=== PATIENT | male | born 1995 | race Caucasian/White ===

== ENCOUNTER 2021-09-13 10:00 | Outpatient (REF) | payer BC, MEDICAID, SELFPAY ==
[2021-09-13 18:19] LABS: Fentanyl, urine Not Detected (Not Detect)
== END 2021-09-13 10:01 | disposition home or self-care (01) ==
LOC: HO.LNP 10:00
PROVIDERS: Visit Provider Internal Medicine
DX: F11.90 Opioid use, unspecified, uncomplicated (principal); Z51.81 Encounter for therapeutic drug level monitoring
CPT/HCPCS: 80305; 80307

== ENCOUNTER 2021-09-27 15:29 | Inpatient (IN) | payer OTHER, MEDICAID, SELFPAY ==
--- NOTE | 2021-09-27 | ECG_ITS ---
Test Reason : AMS Blood Pressure : / mmHG Vent. Rate : 108 BPM Atrial Rate : 108 BPM P-R Int : 134 ms QRS Dur : 098 ms QT Int : 352 ms P-R-T Axes : 026 -23 013 degrees QTc Int : 471 ms Sinus tachycardia Minimal voltage criteria for LVH, may be normal variant ( R in aVL ) Borderline ECG No previous ECGs available Referred By: Phill Valdez Electronically Signed By:MARLON GIANG
--- NOTE | ~2021-09-27 | XR_ITS ---
EXAMINATION: XR CHEST CLINICAL INFORMATION: Unresponsive COMPARISON: None TECHNIQUE: Frontal view of the chest was obtained. FINDINGS: No significant abnormality is noted involving the heart, lungs, mediastinum, bony thorax or soft tissues. XR/XR chest 1V IMPRESSION: Normal portable chest x-ray.
--- NOTE | ~2021-09-27 | CT_ITS ---
EXAMINATION: CT HEAD WITHOUT CONTRAST CLINICAL INFORMATION: Mental status change. Rule out bleed. COMPARISON: None TECHNIQUE: Imaging was performed from the skull base to vertex without intravenous administration of contrast. This CT examination was performed using dose optimization techniques as appropriate, variously including the following: *Automated exposure control *Adjustment of mA and/or kV according to patient size (this includes techniques or standardized protocols for targeted exams where dose is matched to indication/reason for exam; i.e. extremities or head) *Use of iterative reconstruction technique Total exam dose length product: 805 mGy-cm FINDINGS: Exam quality degraded slightly by mild motion artifact. No intra or extra-axial fluid collection, hemorrhage, or mass. No ventriculomegaly. No midline shift or herniation. Basal cisterns are patent. Donahue-white matter differentiation is maintained. No territorial encephalomalacia. No significant volume loss. There is no abnormal attenuation within the brain parenchyma. No calvarial fracture or soft tissue abnormality. The mastoid air cells and visualized portions of the paranasal sinuses are well aerated. CT/CT head/brain wo con IMPRESSION: 1. No acute intracranial pathology.
[2021-09-27 15:39] VITALS: BP 104/45; BP 120/70; PULSE 102; PULSE 213; RESP 24; TEMP 36.9; O2SAT 98; O2SAT 99; BMI 32.5
--- NOTE | 2021-09-27 15:48 | ED_ITS ---
HPI - Altered Mental Status General Chief Complaint: Altered Mental Status Stated Complaint: UNRESPONSIVE Time Seen by Provider: 09/27/21 15:37 Source: EMS Mode of arrival: EMS Limitations: altered mental status History of Present Illness HPI narrative: 26-year-old male who called EMS for chest pain. Patient was apparently found on a bench unresponsive. He had a large bottle of Marycruz crystal near him which was empty. He also had Suboxone with him as well. EMS reported that the patient was responsive to painful stimuli only and that he had a rapid heart rate as high as 220. The patient's point of care glucose was 83. He was given intranasal Narcan with no rib change in his altered mental status. On presentation to the emergency department, the patient is minimally responsive to painful stimuli. His pupils are 6 mm and responsive to light. His point of care glucose in the emergency department was 85. In reviewing the patient's records he was just seen on 09/13/2021 (3 weeks prior to evaluation) by Dr. Ryan for evaluation of opiate use disorder and starting Suboxone. According to the note, the patient was started on Suboxone while he was in residential for the last 3 months and was released 1 week prior to this office evaluation. The patient reported drinking alcohol 1 bottle of alcohol daily and experiencing alcohol withdrawal in the past. He also reported using 1 package of intranasal heroin daily. The patient had a urine drug test which was negative at that time of evaluation. The patient's sister, Sheila, who lives in [place] called and said that the patient has been on house arrest and has been very sad and depressed. The patient's girlfriend 5 packets of Suboxone that were open and she believes that he may have taken all all 5 packets at once. The patient is currently living with the mother of his children, Erin who can be reached at . She states that he has been depressed and she is concerned that he may have tried to hurt himself today by overdosing on Suboxone. Related Data Previous Rx's Medication Instructions Recorded buprenorphine 8 mg-naloxone 2 mg 2 film sublingual DAILY 7 days #14 09/13/21 sublingual film (Suboxone) ea Allergies Allergy/AdvReac Type Severity Reaction Status Date / Time No Known Allergies Allergy Verified 09/27/21 15:37 Review of Systems Review of Systems: Yes Unobtainable due to mental status [facility] Past Medical History [facility] Narrative: Past medical history: Alcohol use disorder, opiate use disorder. Social history: Unobtainable however the patient was released from care home several weeks prior and has been on house arrest. Physical Exam ED Vital Signs: Vital Signs - 24 hr 09/27/21 15:39 Temperature 98.5 F Pulse Rate 102 H Respiratory Rate 24 H Blood Pressure 104/45 L Pulse Oximetry 99 Oxygen Delivery Method Nasal Cannula BMI result Body Mass Index 32.5 Const Other: The patient is somnolent, minimally responsive to painful stimuli, he will occasionally set up look around then lie back down on the stretcher, he does make incomprehensible noises as well HENMT Head: Yes normal to inspection, Yes normocephalic and Yes atraumatic Ears: external ears normal General nose exam: Normal external nose present Face and sinus: Yes normal facial exam Mouth: Normal oral and palatal mucosa present Throat: Yes posterior oropharynx normal Eyes Other: Patient's pupils are 7 mm and responsive. Neck Neck: Yes normal visual inspection, Yes no lymphadenopathy, Yes trachea midline and Yes supple Chest Chest palpation & inspection: normal inspection of the chest and normal palpation of entire chest wall Resp Effort & Inspection: normal respiratory effort and able to speak in complete sentences Auscultation: clear to auscultation bilaterally Cardio Rate: tachycardic Rhythm: regular rhythm Heart sounds: S1 normal heart sound present, S2 normal heart sound present and no murmurs GI Inspection: Yes normal to inspection Palpation (GI): Soft to palpation, nontender and no guarding Auscultation: normal bowel sounds General: Yes no CVA tenderness Back/Spine/Pelvis Back: no CVA tenderness Skin General skin exam: no rashes or lesions noted Neuro Other: Patient is somnolent but responsive to painful stimuli, he does sit up spontaneously , looks around then lies back down to become somnolent again. He does make some incomprehensible noises. Extrem Other: No evidence of trauma, the patient does have an ankle bracelet on his left ankle Psych Other: Somnolent but arousable to painful stimuli Course Course Course Narrative: 26-year-old male with a history of heroin use disorder and alcohol use disorder who called 911 himself complained of chest pain and was found unresponsive on a bench. The patient had Suboxone on him and also there was a large bottle of Marycruz crystal which was empty. Patient's point of care glucose by EMS and by the ED was in the 80 range. Vital signs did reveal low BP of 104/45, pulse of 102 respiratory of 24. Patient was given Narcan 2 mg IV with no effect. I did order laboratory evaluation, EKG , CT scan of the head and chest x-ray. The patient will be kept on a cardiac, pulse ox and end-tidal CO2 monitor. Since there is a concerned the patient may have intentionally overdosed on his Suboxone in order to hurt himself, I will place the patient on a Section 12. 1651: Laboratory evaluation: Urine tox screen was positive for marijuana only. ETOH level was 164. Acetaminophen and salicylates were below detectable limits. CBC and CMP were unremarkable. Lactic acid was elevated at 3.2. Radiology evaluation: Chest x-ray was unremarkable. CT scan of the head is pending. At this time, I believe that the patient's altered mental status was most likely caused by severe depression and possibly alcohol intoxication and intentional overdose of his Suboxone. At the end of my shift, the CT scan is pending and (evaluation is pending therefore the patient's care was turned over to my colleague, Dr. Anderson. Discharge Plan Discharge Clinical Impression: Acute alteration in mental status Alcohol intoxication Qualifiers: Complication of substance-induced condition: uncomplicated Qualified Code(s): F10.920 - Alcohol use, unspecified with intoxication, uncomplicated Intentional overdose Qualifiers: Encounter type: initial encounter Qualified Code(s): T50.902A - Poisoning by unspecified drugs, medicaments and biological substances, intentional self-harm, initial encounter Patient Disposition: Still a Patient Prescriptions: No Action buprenorphine-naloxone [Suboxone] 8-2 mg film 2 film sublingual DAILY 7 Days Qty: 14 0RF Rx Instructions: place 1 strip/tab under (each) side of tongue
[2021-09-27] MEDS: 0.9 % Sodium Chloride 1,000 ML 999 ML IV ×2 (15:49→18:51)
[2021-09-27 15:53] LABS: MANUAL DIFF FLAG NO
[2021-09-27 15:54] LABS: Basophils Percent Auto 0.2 % (0-2); Hematocrit 40.4 % (42.0-52.0); Hemoglobin 13.5 g/dl (14.0-18.0); Imm Gran Abs Auto 0.02 X10*3/uL (0.00-0.03); Imm Gran Pct Auto 0.2 % (0.0-0.4); Lymphocytes Absolute Auto 1.9 X10*3/uL (1.2-4.9); Lymphocytes Percent Auto 18.5 % (20-40); Mean Corpuscular HGB Conc 33.4 g/dl (31.0-36.0); Mean Corpuscular Hemoglobin 28.9 pg (27.0-33.0); Mean Corpuscular Volume 86.5 fL (80.0-98.0); Mean Platelet Volume 12.4 fL (9.4-12.4); Monocytes Absolute Auto 0.7 X10*3/uL (0.1-1.2); Monocytes Percent Auto 6.6 % (2-11); Neutrophils Absolute Auto 7.6 x10*3/uL (2.0-8.3); Neutrophils Percent Auto 74.5 % (45-73); Platelet Count 197 X10*3/uL (160-400); Red Blood Count 4.67 X10*6/uL (4.60-5.80); Red Cell Distribution Width 11.9 % (11.0-16.0); White Blood Count 10.1 X10*3/uL (4.8-10.8)
[2021-09-27 16:01] LABS: INTERNATIONAL NORM RATIO 1.1 (0.9-1.1); Prothrombin Time 12.6 SEC (10.0-13.1)
[2021-09-27 16:03] LABS: Partial Thromboplastin Time 28.6 SEC (24.1-38.0)
--- NOTE | 2021-09-27 16:06 | PC.NURSE ---
Pt's sister, Sheila, spoke with Dr Valdez.
[2021-09-27 16:10] LABS: Acetaminophen LAB < 1 mcg/mL (<30); Lactic Acid 3.2 mmol/L (0.5-2.0); Lipase 12 U/L (8-78); Salicylate < 5.0 mg/dL (15-30)
[2021-09-27 16:11] LABS: Alanine Aminotransferase 11 U/L (0-40); Albumin Level 4.6 g/dL (3.5-5.0); Alkaline Phosphatase 127 U/L (39-117); Anion Gap 17 (12-20); Aspartate Amino Transferase 16 U/L (5-37); Bilirubin Total 1.3 mg/dL (0.0-1.0); Blood Urea Nitrogen 17 mg/dL (9-16); Calcium 9.5 mg/dL (8.4-10.2); Carbon Dioxide 21 mmol/L (22-29); Chloride 108 mmol/L (96-108); Creatinine Clr Calc Pharmacy 146.8; Estimated Glomerular Filt Rate > 60; Ethanol 164 mg/dL; Glucose Random 95 mg/dL (60-115); Potassium 3.6 mmol/L (3.3-5.1); Sodium 142 mmol/L (135-145); Total Protein 7.6 g/dL (6.5-8.0)
[2021-09-27 16:17] LABS: B Type Natriuretic Peptide 29 pg/mL (<100); Troponin-I High Sensitivity < 3.5 ng/L (<3.5-35.0)
[2021-09-27 16:20] LABS: COVID-19 Test Negative (Negative); IDNOW Serial# 9DB6401D
[2021-09-27 17:47] VITALS: BP 113/70; PULSE 80; RESP 12; O2SAT 99
[2021-09-27 17:49] LABS: Reflex Lactate? Lactic Acid Added
[2021-09-27 18:13] LABS: Glucose, Whole Blood 83 mg/dL (60-115)
[2021-09-27 18:20] LABS: Lactic Acid 2.8 mmol/L (0.5-2.0)
[2021-09-27 18:53] VITALS: PULSE 85; RESP 13; TEMP 36.9; O2SAT 99
[2021-09-27 18:56] LABS: Appearance Urine CLEAR; Color Urine DK YELLOW; Glucose Urine UA NEG (NEG); Leukocyte Esterase Urine NEG (NEG); Nitrite Urine NEG (NEG); Specific Gravity - Urine 1.025 (1.005-1.025); Urine Blood NEG (NEG); Urine Ketones 5 MG/DL (NEG); Urine Protein NEG (NEG-TRACE)
[2021-09-27 19:05] LABS: Amphetamine Screen Urine Not Detected (Not Detect); Barbiturates, Urine Not Detected (Not Detect); Benzodiazepines Screen Urine Not Detected (Not Detect); Cannabinoid Screen Urine POSITIVE (Not Detect); Cocaine Screen Urine Not Detected (Not Detect); Fentanyl, urine Not Detected (Not Detect); Opiate Screen Urine Not Detected (Not Detect); Phencyclidine Screen Urine Not Detected (Not Detect)
--- NOTE | 2021-09-27 19:40 | PC.NURSE ---
This RN spoke with Dr Anderson to clarify if pt is medically cleared. Pt continues to receive IV fluids that were ordered. Per Dr Anderson, continuing repeat lactics not necessary. primary RN Angela made aware. [facility] Smart sheet to be submitted at this time.
--- NOTE | 2021-09-27 19:45 | PC.NURSE ---
Online [facility] referral completed by this RN.
[2021-09-27 19:53] LABS: Reflex Lactate? Lactic Acid Added
--- NOTE | 2021-09-27 19:58 | PC.NURSE ---
Report given to JAGRUTI Thompson and care transferred at this time
--- NOTE | 2021-09-27 20:00 | PC.NURSE ---
Patient Just got transferred from main ED, independent ambulation, N referral was completed/confirmed by Vanessa/pending ETA at this time, per report patient is medically cleared, will continue to monitor.
[2021-09-28 00:22] VITALS: BP 118/76; PULSE 81; RESP 16; TEMP 36.4; O2SAT 99
--- NOTE | 2021-09-28 06:36 | PC.NURSE ---
Patient slept through the night, no distress observed/reported, asymptomatic of withdrawal at this time, [facility] referral completed/confirmed/pending ETA, med rec completed, currently on Suboxone only, mother visited yesterday evening went well, behavior non concerning, will continue to monitor.
--- NOTE | 2021-09-28 07:24 | PC.NURSE ---
patient appears to remain at rest this am, presented patient with breakfast patient made no verbal comments to t/w upon presentation, patient appears in no distress, respirations even and unlabored. continue to monitor for safety.
--- NOTE | 2021-09-28 09:21 | MHC.RECOVSUP ---
Recovery Support note: Patient is a 26 year old Portuguese speaking male who presented to [facility] after being found unresponsive. This ghost writer met with patient to discuss Suboxone use and his interest in continuing treatment. Patient does not recall what happened prior to arrival. Explained that there were 5 empty Suboxone wrappers found near him. Patient unable to say whether he took more than prescribed or if the films were taken as prescribed over a period of days and that he was saving the wrappers to bring back to the clinic as instructed. Patient denies using any opiates or pills. Patient tested negative for opiates and fentanyl. Patient is interested in continuing Suboxone. Discussed with RN and ED provider. This ghost writer recommends patient resume his regular dose of 2, 8mg films once a day. Patient currently being evaluated by Meaghan and a disposition is still pending.
[2021-09-28 10:24] VITALS: BP 140/81; PULSE 71; TEMP 36.7; O2SAT 100
[2021-09-28] MEDS: Buprenorphine/Naloxone 8/2 mg FILM 1 FILM SUBLINGUAL (10:31)
--- NOTE | 2021-09-28 13:00 | PC.NURSE ---
clients sister called (sounded like conference call w mother) and inquired about patient status, informed them the plan would be to have patient head to inpatient unit today
--- NOTE | 2021-09-28 17:24 | PC.NURSE ---
t/w asked client permission to let in visit from mother or sister, client declined. asked first about mother he responds without looking at poem writer. repeatedly asked and clients delayed in responses. patient had made phone calls to them during the day. five minutes was spent trying to encourage client to allow visit, patient declines. family calls back and asks to speak to someone. t/w asked care produce team lead to go speak to family briefly to try and explain.
[2021-09-29 00:37] VITALS: BP 141/79; PULSE 68; RESP 17; TEMP 36.6; O2SAT 99
[2021-09-29] MEDS: LORazepam 1 MG TABLET PO (00:56)
[2021-09-29] MEDS: OLANZapine 10 MG TABLET PO (00:56)
--- NOTE | 2021-09-29 06:53 | PC.NURSE ---
Patient woke up at 0015, startled/screaming at TV, spoke with patient he reported nightmares, provider notified/ordered Ativan 1 mg po & Olanzapine 10 mg po/administered as ordered/+ effect, slept through the night, disposition per [facility] is section 12 inpatient bed search, VSS, behavior unpredictable but non concerning, will continue to monitor.
--- NOTE | 2021-09-29 07:22 | PC.NURSE ---
patient appears to remain asleep at present respirations are even and unlabored patient appears in no distress
--- NOTE | 2021-09-29 11:01 | MHC.CARE ---
CARE Team received phone call from Pts family- CARE Team explained limitations regarding Pt declining communication with his family at this time.
[2021-09-29 18:00] VITALS: BP 127/82; PULSE 82; TEMP 36.2; O2SAT 98
--- NOTE | 2021-09-30 00:45 | PC.ADMIT ---
PATIENT IS A SINGLE INDIAN SPEAKING MALE ADMITTED A SECTION 12B FROM THE [facility] AFTER HE WAS MEDICALLY CLEARED AND EVALUATED BY [facility] AND DEEMED IN NEED OF IPLOC. HE ARRIVED ON M5 AT 194409/29/21 AND PLACED ON 15 MINUTE SAFETY CHECKS. THE PATIENT HAD BEEN BROUGHT TO THE [facility] AFTER HE WAS FOUND UNRESPONSIVE BY EMS AND THERE WAS A QUESTION OF SUBOXONE OVERDOSE. HE WAS POSITIVE FOR THC WELL. PATIENT WAS REPORTED TO HAVE MADE SUICIDAL STATEMENTS. HE IS NOT KNOWN TO [facility] OR [facility]. HE WAS APPARENTLY, ACCORDING TO HIS SISTER, FRUSTRATED WITH BEING ON HOUSE ARREST AFTER BEING IN ALF FOR 3 MONTHS AND LEFT THE HOUSE TO GO DRINK. PATIENT WAS UNABLE TO RECALL, TO THIS PHARMACEUTICAL SCIENTIST, ANY REASON FOR BEING IN THE HOSPITAL. WHEN THIS PHARMACEUTICAL SCIENTIST EXPLAINED HE HAD BEEN UNRESPONSIVE HE STILL WAS UNABLE TO PROCESS THE SEVERITY OF HIS ACTIONS. HE SAID HE DID NOT REMEMBER MAKING ANY SUICIDAL STATEMENTS BUT DOES REMEMBER DRINKING. HE WAS GUARDED DURING THE ADMISSION PROCESS AND DID NOT MAKE EYE CONTACT WITH THIS PHARMACEUTICAL SCIENTIST. HE SAID HE DID NOT HAVE ACTIVE SUICIDAL THOUGHTS BUT ALLUDED TO VOICES THAT TELL HIM TO HURT/KILL HIMSELF. BOTTLE CARRIER PROVIDER AWARE OF ADMISSION; ORDERS WERE OBTAINED. PATIENT SAT IN THE KITCHEN AREA UNTIL HE BECAME SLEEPY. HE WAS OFFERED A TRAZADONE BUT DECLINED.
[2021-09-30 09:17] VITALS: BP 107/69; PULSE 66; RESP 18; TEMP 36.6; O2SAT 98
[2021-09-30] MEDS: OLANZapine 10 MG TABLET PO ×2 (10:59→20:31)
[2021-09-30] MEDS: Buprenorphine/Naloxone 8/2 mg FILM 2 FILM SUBLINGUAL (11:01)
--- NOTE | 2021-09-30 15:06 | HO.PSYADMNOT ---
HPI Date of Service: 09/30/21 Chief Complaint: Psychosis Sources of Information: patient interviewed, chart reviewed and crisis/core team assessment reviewed HPI Subjective Notes: [place] Warning and Section 12B Narrative: Interview limited as patient presents as internally preoccupied with thought blocking. He endorses hearing things. From crisis notes comments are negative in nature and telling him to hurt himself. Reports today that this is not him and he is not sure what is happening. Does appear scared. Does endorse hearing voices and states they say inappropriate things and unable to elaborate. Denies wanting to hurt himself. No evidence of HI. Does endorse feeling depressed. Sleep has been problematic. No overt mansi. Is allowing care to be delivered. States his kid's mother kicked him out a couple of days ago. Said he was drinking liquor which he denies. Blood alcohol level was in the 160s. There is no evidence of withdrawal. Reported when she kicked him out, he called his mom as he needed to change and address for his ankle bracelet. He is unable to state what happened after that. Legal situation is unclear and unable to elaborate on same. Did reference that he was trying to work because he would be going away for a long time. Asked regarding Suboxone dosing and unable to elaborate on same or why he was also declining Suboxone- Reviewed [place] Pat. There is only 1 Suboxone prescription for 7 days on 09/13/2021, For 8 mg tabs 2 per day. Given same will DC suboxone order, until patient able to engage more ref same. Past Psychiatric History: very unclear. Stated he did not have any psychiatric history. And stated he had a suicide attempt couple of years ago but unable to give details. Medical Evaluation Reviewed: [facility] Social History: Unclear living situation. Reports being kicked out by his kids mom a couple days ago. Ankle bracelet in place and unclear details regarding same. Reports having a 2-year-old and 1-year-old. Substance History: Unclear. Diagnostics Vital Signs (24Hr): Vital Signs - 24 hr 09/29/21 18:00 09/30/21 09:17 Temperature 97.2 F 97.8 F Pulse Rate 82 66 Respiratory Rate 18 Blood Pressure 127/82 107/69 Pulse Oximetry 98 98 Oxygen Delivery Method Room Air Room Air BMI result Body Mass Index 32.5 Labs Results: 09/27/21 15:44 09/27/21 15:43 Imaging Radiology Impressions: ITS Impressions Chest X-Ray 09/27/21 16:05 IMPRESSION: Normal portable chest x-ray. Head CT 09/27/21 17:11 IMPRESSION: 1. No acute intracranial pathology. Meds/Allergies Allergies Allergies Allergy/AdvReac Type Severity Reaction Status Date / Time No Known Allergies Allergy Verified 09/27/21 15:37 Mental Status Exam Mental Status Exam Narrative: In room. Anxious. Internally preoccupied. Endorses hallucinations say negative things. Denies SI. Denies HI. Feels safe with staff. Insight and judgment limited Assessment & Plan Assessment & Plan (1) Psychosis: Status: Acute Code(s): F29 - Unspecified psychosis not due to a substance or known physiological condition Plan presents with auditory hallucinations and thought disorder for unclear time frame. Background history unclear. Medical workup unremarkable. Zyprexa does appear to have being somewhat helpful when given earlier today and will therefore schedule same. Regarding Suboxone only 1 Suboxone prescription for 7 days on 09/13/2021, For 8 mg tabs 2 per day. Has been declining suboxone. Given same will DC suboxone order, until patient able to engage more ref same. Patient educated on: medication risk/benefits Informed Consent: further education needed Reason for continued inpatient stay Substantial Risk for: inability to function
[2021-09-30 16:37] VITALS: BP 113/56; PULSE 75; RESP 16; TEMP 36.8; O2SAT 98
[2021-09-30 19:34] VITALS: BP 143/84; PULSE 94; RESP 16; TEMP 36.3; O2SAT 97
[2021-10-01 06:00] VITALS: BP 112/59; PULSE 87; RESP 16; TEMP 36.6; O2SAT 98
[2021-10-01] MEDS: OLANZapine 10 MG TABLET PO ×2 (10:04→11:49)
[2021-10-01] MEDS: Buprenorphine/Naloxone 8/2 mg FILM 2 FILM SUBLINGUAL (10:04)
--- NOTE | 2021-10-01 13:26 | HO.PSYCHPN ---
Subjective Subjective Date of Service: 10/01/21 Reason For Visit: Psychosis Interim History: Patient sitting on bed, with significant thought blocking and speech latency. He says he is not doing so good and reports that this is because he is hearing voices. He says frequently I just do not understand all of this.. . I just do not get it... And seems to be referring to why he is feeling confused and having auditory hallucinations, however he is not capable of elaborating. Patient is somewhat of a limited historian; he says he thinks he has been on medications before but does not remember what they were or when. He shared some of his history about his girlfriend not wanting him to live there and his mom thinking he is the person he used to be however it is hard to get him to clarify these statements. Patient has some ambivalence about whether not to remain on the unit but seems to indicate he is open to the idea. He also said it would be okay to call his mother for collateral. Patient agrees to medication change at flex o writer operator's discretion if it will help relieve him from auditory hallucinations. Patient seemed to understand that his confusion and auditory hallucinations are due to a psychiatric illness/schizophrenia however other than seemingly knotting in acceptance, he was not able to discuss this in any detail. Mental Status Exam Mental Status Exam Narrative: Pt is alert and oriented; behavior is disorganized; patient is in emotional distress; dressed in hospital attire with unkempt hair; mood is described as not so good and affect congruent, blunted and sometimes anxious; eye contact not inappropriate but sometimes blank stare; Speech is with significant speech latency, slowed and with softer volume; some psychomotor retardation present; thought process can be goal oriented but also disorganized; Thought content is on why he is having auditory hallucinations, wondering if it is something he did wrong, and also confused, not understanding his situation; denies delusional content or paranoid ideations and none solicited; denies any SI/HI. AH present and patient with significant thought blocking and is internally preoccupied. Patients insight and judgment are impaired. Diagnostics Vital Signs (24Hr): Vital Signs - 24 hr 09/30/21 16:37 09/30/21 19:34 10/01/21 06:00 Temperature 98.2 F 97.3 F 97.9 F Pulse Rate 75 94 87 Respiratory Rate 16 16 16 Blood Pressure 113/56 L 143/84 H 112/59 L Pulse Oximetry 98 97 98 Oxygen Delivery Method Room Air Room Air BMI result Body Mass Index 32.5 Labs Results: 09/27/21 15:44 09/27/21 15:43 Imaging Radiology Impressions: ITS Impressions Chest X-Ray 09/27/21 16:05 IMPRESSION: Normal portable chest x-ray. Head CT 09/27/21 17:11 IMPRESSION: 1. No acute intracranial pathology. Medications Medications Current Medications Acetaminophen (Acetaminophen 325 Mg Tablet) 650 mg PO Q6H PRN PRN Reason: Headache/Pain Mild Scale (1-3) Al Hydroxide/Mg Hydroxide (Magnesium Hydrox/Alum Hydrox 30 Ml Oral.Susp) 30 ml PO Q6H PRN PRN Reason: Heartburn/Nausea Buprenorphine/Naloxone (Buprenorphine/Naloxone 8/2 Mg Film) 2 film SUBLINGUAL DAILY [facility] [place] Last Admin: 10/01/21 10:04 Dose: 2 film Hydroxyzine HCl (Hydroxyzine Hcl 25 Mg Tablet) 25 mg PO BEDTIME PRN PRN Reason: Anxiety Magnesium Hydroxide (Milk Of Magnesia 30 Ml Oral.Susp) 30 ml PO DAILY PRN PRN Reason: Constipation Olanzapine (Olanzapine 10 Mg Tablet) 10 mg PO Q8H PRN PRN Reason: agitation, anxiety Last Admin: 10/01/21 11:49 Dose: 10 mg Olanzapine (Olanzapine 10 Mg Tablet) 10 mg PO BID [facility] [place] Last Admin: 10/01/21 10:04 Dose: 10 mg Trazodone HCl (Trazodone Hcl 50 Mg Tablet) 50 mg PO BEDTIME PRN PRN Reason: Insomnia Allergies Allergies Allergy/AdvReac Type Severity Reaction Status Date / Time No Known Allergies Allergy Verified 09/27/21 15:37 Assessment & Plan Assessment & Plan (1) Psychosis: Status: Acute Code(s): F29 - Unspecified psychosis not due to a substance or known physiological condition Plan HPI: Interview limited as patient presents as internally preoccupied with thought blocking.? He endorses hearing things.? From crisis notes comments are negative in nature and telling him to hurt himself.? Reports today that this is not him and he is not sure what is happening.? Does appear scared. ? Does endorse hearing voices and states they say inappropriate things and unable to elaborate.? Denies wanting to hurt himself.? No evidence of HI.? Does endorse feeling depressed.? Sleep has been problematic.? No overt mansi.? Is allowing care to be delivered. States his kid's mother kicked him out a couple of days ago.? Said he was drinking liquor which he denies.? Blood alcohol level was in the 160s. ? There is no evidence of withdrawal.? Reported when she kicked him out, he called his mom as he needed to change and address for his ankle bracelet.? He is unable to state what happened after that.? Legal situation is unclear and unable to elaborate on same.? Did reference that he was trying to work because he would be going away for a long time. ? Asked regarding Suboxone dosing and unable to elaborate on same or why he was also declining Suboxone- ? Reviewed [facility].? There is only 1 Suboxone prescription for 7 days on 09/13/2021, ? For 8 mg tabs 2 per day. Given same will DC suboxone order, until patient able to engage more ref same. Past Psychiatric History:? very unclear.? Stated he did not have any psychiatric history.? And stated he had a suicide attempt couple of years ago but unable to give details. Hospital course: presents with auditory hallucinations and thought disorder for unclear time frame. Background history unclear. Medical workup unremarkable. After a few doses of Zyprexa reported as not that helpful and no reduction in AH so patient agreed to change to ziprasidone, chosen for its side effect profile lower risk of TD than typical antipsychotic. PLAN: 12b Q 15 minute checks DC Zyprexa and start ziprasidone Start Ziprasidone 20 mg b.i.d. with meals will repeat EKG (QTc on 09/27: 471 ms) Will attempt collateral and medication history Continue Suboxone 16/4 Mg Film DAILY I spent minutes with the patient and/or on the patient floor today, greater than?50% of which was spent counseling/coordinating care. Patient educated on: diagnosis and medication risk/benefits Informed Consent: further education needed Reason for contiued inpatient stay Substantial Risk for: inability to function and rapid decompensation
[2021-10-01 18:00] VITALS: BP 119/76; PULSE 76; TEMP 36.9; O2SAT 100
[2021-10-01] MEDS: traZODone HCL 50 MG TABLET PO (20:49)
[2021-10-01] MEDS: Ziprasidone 20 MG CAPSULE PO (20:50)
[2021-10-01] MEDS: hydrOXYzine HCL 25 MG TABLET PO (20:50)
[2021-10-02 09:20] LABS: Estimated Average Glucose 74 mg/dL; Hemoglobin A1c % 4.2 %
[2021-10-02] MEDS: Ziprasidone 20 MG CAPSULE PO ×3 (09:34→20:28)
[2021-10-02] MEDS: Buprenorphine/Naloxone 8/2 mg FILM 2 FILM SUBLINGUAL (09:34)
[2021-10-02 09:37] VITALS: BP 120/56; PULSE 82; RESP 18; TEMP 37.1
[2021-10-02 10:07] LABS: Cholesterol 120 mg/dL; HDL Cholesterol 27 mg/dL; LDL Cholesterol Calculated 82 mg/dl; Triglycerides 59 mg/dL
--- NOTE | 2021-10-02 10:13 | HO.PSYCHPN ---
Subjective Subjective Date of Service: 10/02/21 Reason For Visit: Psychosis Interim History: Patient remains with significant thought blocking and speech latency. Eventually however he is able to say that he feels a little better and that auditory hallucinations remain but are a little less intense. Patient signed CV. Patient significantly internally preoccupied stay to the point that would forget securities underwriter's question and needed to be reminded. Mental Status Exam Mental Status Exam Narrative: Pt is alert and oriented; behavior is disorganized, but more calm; dressed in jeans and hospital gown with unkempt hair; mood is described as ok but and affect blunted; eye contact minimal; Speech is with significant speech latency, slowed and with softer volume; some psychomotor retardation present; thought process can be goal oriented but also disorganized; Thought content is on why he is having auditory hallucinations and dealing with being internally preoccupied. No SI/HI; Patients insight and judgment are impaired. Diagnostics Vital Signs (24Hr): Vital Signs - 24 hr 10/01/21 18:00 10/02/21 09:37 Temperature 98.5 F 98.8 F Pulse Rate 76 82 Respiratory Rate 18 Blood Pressure 119/76 120/56 L Pulse Oximetry 100 Oxygen Delivery Method Room Air Room Air BMI result Body Mass Index 32.5 Labs Results: 09/27/21 15:44 09/27/21 15:43 Labs: Laboratory Results - last 48 hr 10/02/21 10/02/21 08:35 08:36 Estimat Average Glucose 74 Hemoglobin A1c % 4.2 Triglycerides 59 Cholesterol 120 LDL Cholesterol, Calc 82 HDL Cholesterol 27 Imaging Radiology Impressions: ITS Impressions Chest X-Ray 09/27/21 16:05 IMPRESSION: Normal portable chest x-ray. Head CT 09/27/21 17:11 IMPRESSION: 1. No acute intracranial pathology. Medications Medications Current Medications Acetaminophen (Acetaminophen 325 Mg Tablet) 650 mg PO Q6H PRN PRN Reason: Headache/Pain Mild Scale (1-3) Al Hydroxide/Mg Hydroxide (Magnesium Hydrox/Alum Hydrox 30 Ml Oral.Susp) 30 ml PO Q6H PRN PRN Reason: Heartburn/Nausea Buprenorphine/Naloxone (Buprenorphine/Naloxone 8/2 Mg Film) 2 film SUBLINGUAL DAILY [facility] Last Admin: 10/02/21 09:34 Dose: 2 film Hydroxyzine HCl (Hydroxyzine Hcl 25 Mg Tablet) 25 mg PO BEDTIME PRN PRN Reason: Anxiety Last Admin: 10/01/21 20:50 Dose: 25 mg Magnesium Hydroxide (Milk Of Magnesia 30 Ml Oral.Susp) 30 ml PO DAILY PRN PRN Reason: Constipation Trazodone HCl (Trazodone Hcl 50 Mg Tablet) 50 mg PO BEDTIME PRN PRN Reason: Insomnia Last Admin: 10/01/21 20:49 Dose: 50 mg Ziprasidone (Ziprasidone 20 Mg Capsule) 20 mg PO BIDWM [facility] Last Admin: 10/02/21 09:34 Dose: 20 mg Allergies Allergies Allergy/AdvReac Type Severity Reaction Status Date / Time No Known Allergies Allergy Verified 09/27/21 15:37 Assessment & Plan Assessment & Plan (1) Psychosis: Status: Acute Code(s): F29 - Unspecified psychosis not due to a substance or known physiological condition Plan HPI: Interview limited as patient presents as internally preoccupied with thought blocking.? He endorses hearing things.? From crisis notes comments are negative in nature and telling him to hurt himself.? Reports today that this is not him and he is not sure what is happening.? Does appear scared. ? Does endorse hearing voices and states they say inappropriate things and unable to elaborate.? Denies wanting to hurt himself.? No evidence of HI.? Does endorse feeling depressed.? Sleep has been problematic.? No overt mansi.? Is allowing care to be delivered. States his kid's mother kicked him out a couple of days ago.? Said he was drinking liquor which he denies.? Blood alcohol level was in the 160s. ? There is no evidence of withdrawal.? Reported when she kicked him out, he called his mom as he needed to change and address for his ankle bracelet.? He is unable to state what happened after that.? Legal situation is unclear and unable to elaborate on same.? Did reference that he was trying to work because he would be going away for a long time. ? Asked regarding Suboxone dosing and unable to elaborate on same or why he was also declining Suboxone- ? Reviewed [facility].? There is only 1 Suboxone prescription for 7 days on 09/13/2021, ? For 8 mg tabs 2 per day. Given same will DC suboxone order, until patient able to engage more ref same. Past Psychiatric History:? very unclear.? Stated he did not have any psychiatric history.? And stated he had a suicide attempt couple of years ago but unable to give details. Hospital course: presents with auditory hallucinations and thought disorder for unclear time frame. Background history unclear. Medical workup unremarkable. After a few doses of Zyprexa reported as not that helpful and no reduction in AH so patient agreed to change to ziprasidone, chosen for its side effect profile lower risk of TD than typical antipsychotic. 7/6 some minimal decrease in auditory hallucinations, given hope that Zyprexa might be helpful. Remains disorganized speech and behavior however, with significant speech latency, thought blocking. Patient continues to have auditory hallucinations and is confused. Patient reports nightmares as well; will hold off with prazosin at this time. Collateral provided and patient has history of being diagnosed with bipolar disorder however this was diagnosed when he was only 17. Patient has numerous drug related charges. PLAN: 12b Q 15 minute checks DC Zyprexa and start ziprasidone Will increase to Ziprasidone 40 mg b.i.d. with meals for continued AH and disorganized speech and behavior repeat EKG ordered on 10/02: Results pending (QTc on 09/27: 471 ms) Sister provided collateral to home health care social worker Continue Suboxone 16/4 Mg Film DAILY Lipids/hemoglobin A1c checked and within normal limits I spent minutes with the patient and/or on the patient floor today, greater than?50% of which was spent counseling/coordinating care. Patient educated on: diagnosis and medication risk/benefits Informed Consent: understands and further education needed Reason for contiued inpatient stay Substantial Risk for: inability to function and rapid decompensation
[2021-10-02 12:33] LABS: Reflex LDLD? No
[2021-10-02 18:00] VITALS: BP 126/75; PULSE 69; TEMP 36.5; O2SAT 96
[2021-10-02] MEDS: hydrOXYzine HCL 25 MG TABLET PO (20:27)
[2021-10-02] MEDS: traZODone HCL 50 MG TABLET PO (21:42)
[2021-10-03 07:00] VITALS: BMI 33.3
--- NOTE | 2021-10-03 07:00 | ECG_ITS ---
Test Reason : CHECK QTC Blood Pressure : / mmHG Vent. Rate : 075 BPM Atrial Rate : 075 BPM P-R Int : 122 ms QRS Dur : 096 ms QT Int : 390 ms P-R-T Axes : 036 -18 -13 degrees QTc Int : 435 ms Normal sinus rhythm Normal ECG When compared with ECG of 27-SEP-2021 15:29, No significant change was found Referred By: Villa Perea Electronically Signed By:Beto Blackman
[2021-10-03] MEDS: Ziprasidone 40 MG CAPSULE PO (09:49)
[2021-10-03] MEDS: Buprenorphine/Naloxone 8/2 mg FILM 2 FILM SUBLINGUAL (10:17)
[2021-10-03] MEDS: Ziprasidone 20 MG CAPSULE PO (12:17)
--- NOTE | 2021-10-03 14:12 | HO.PSYCHPN ---
Subjective Subjective Date of Service: 10/03/21 Reason For Visit: Psychosis Interim History: Patient today dressed in casual clothes, no hospital gown. Out of his room will little more, but still quite isolative. Little less speech latency however it remains. Patient reports continued auditory hallucinations, voices that are bothering him. He asked for medication to help with the voices and was given Geodon as a p.r.n.. Fruit And Vegetable Inspector tried to figure out if his experience of AH has decreased since he got here or is less bothersome however patient was unable to articulate. He says he is still feeling confused but does think his mind is a little more clear. Patient asked why this was happening and underwriter solicitation director explained Schizophrenia and its treatment. Patient asked some questions and seemed to understand, at least partially. Denies any SI or HI Mental Status Exam Mental Status Exam Narrative: Pt is alert and oriented; behavior is disorganized, but more calm; dressed in jeans and T-shirt; unkempt cloths, hair; mood is described as not doing to well and affect blunted; eye contact little better; Speech is with significant speech latency but a little less so; still slowed; volume a little better; some psychomotor retardation present; thought process can be briefly goal oriented but again becomes disorganized; Thought content is interrupted by internal pre-occupation; also on why he is having auditory hallucinations and dealing with being internally preoccupied. No SI/HI; Patients insight and judgment are impaired. Diagnostics Vital Signs (24Hr): Vital Signs - 24 hr 10/02/21 18:00 Temperature 97.7 F Pulse Rate 69 Blood Pressure 126/75 Pulse Oximetry 96 Oxygen Delivery Method Room Air BMI result Body Mass Index 33.3 Labs Results: 09/27/21 15:44 09/27/21 15:43 Labs: Laboratory Results - last 48 hr 10/02/21 10/02/21 08:35 08:36 Estimat Average Glucose 74 Hemoglobin A1c % 4.2 Triglycerides 59 Cholesterol 120 LDL Cholesterol, Calc 82 HDL Cholesterol 27 Imaging Radiology Impressions: ITS Impressions Chest X-Ray 09/27/21 16:05 IMPRESSION: Normal portable chest x-ray. Head CT 09/27/21 17:11 IMPRESSION: 1. No acute intracranial pathology. Medications Medications Current Medications Acetaminophen (Acetaminophen 325 Mg Tablet) 650 mg PO Q6H PRN PRN Reason: Headache/Pain Mild Scale (1-3) Al Hydroxide/Mg Hydroxide (Magnesium Hydrox/Alum Hydrox 30 Ml Oral.Susp) 30 ml PO Q6H PRN PRN Reason: Heartburn/Nausea Buprenorphine/Naloxone (Buprenorphine/Naloxone 8/2 Mg Film) 2 film SUBLINGUAL DAILY [facility] Last Admin: 10/03/21 10:17 Dose: 2 film Hydroxyzine HCl (Hydroxyzine Hcl 25 Mg Tablet) 25 mg PO BEDTIME PRN PRN Reason: Anxiety Last Admin: 10/02/21 20:27 Dose: 25 mg Magnesium Hydroxide (Milk Of Magnesia 30 Ml Oral.Susp) 30 ml PO DAILY PRN PRN Reason: Constipation Trazodone HCl (Trazodone Hcl 50 Mg Tablet) 50 mg PO BEDTIME PRN PRN Reason: Insomnia Last Admin: 10/02/21 21:42 Dose: 50 mg Ziprasidone (Ziprasidone 60 Mg Capsule) 60 mg PO BIDWM [facility] Allergies Allergies Allergy/AdvReac Type Severity Reaction Status Date / Time No Known Allergies Allergy Verified 09/27/21 15:37 Assessment & Plan Assessment & Plan (1) Psychosis: Status: Acute Code(s): F29 - Unspecified psychosis not due to a substance or known physiological condition Plan HPI: Interview limited as patient presents as internally preoccupied with thought blocking.? He endorses hearing things.? From crisis notes comments are negative in nature and telling him to hurt himself.? Reports today that this is not him and he is not sure what is happening.? Does appear scared. ? Does endorse hearing voices and states they say inappropriate things and unable to elaborate.? Denies wanting to hurt himself.? No evidence of HI.? Does endorse feeling depressed.? Sleep has been problematic.? No overt mansi.? Is allowing care to be delivered. States his kid's mother kicked him out a couple of days ago.? Said he was drinking liquor which he denies.? Blood alcohol level was in the 160s. ? There is no evidence of withdrawal.? Reported when she kicked him out, he called his mom as he needed to change and address for his ankle bracelet.? He is unable to state what happened after that.? Legal situation is unclear and unable to elaborate on same.? Did reference that he was trying to work because he would be going away for a long time. ? Asked regarding Suboxone dosing and unable to elaborate on same or why he was also declining Suboxone- ? Reviewed [facility].? There is only 1 Suboxone prescription for 7 days on 09/13/2021, ? For 8 mg tabs 2 per day. Given same will DC suboxone order, until patient able to engage more ref same. Past Psychiatric History:? very unclear.? Stated he did not have any psychiatric history.? And stated he had a suicide attempt couple of years ago but unable to give details. Hospital course: presents with auditory hallucinations and thought disorder for unclear time frame. Background history unclear. Medical workup unremarkable. After a few doses of Zyprexa reported as not that helpful and no reduction in AH so patient agreed to change to ziprasidone, chosen for its side effect profile lower risk of TD than typical antipsychotic. 10/03 Patient Remains with speech latency and disorganized behavior and speech; Speech Is a little less latent; remains confused. Continues to have troublesome AH and given a p.r.n.; will increase ziprasidone further. Initially it seemed that is a present own was lowering AH but now it is not clear. If symptoms do not get better with this next increase, will likely consider switching to a different antipsychotic. PLAN: 12b Q 15 minute checks Increase to Ziprasidone 60 mg b.i.d. with meals (was 40mg bid yesterday) repeat EKG on 10/03: ? QTc Int : 435 ms HBA1C/lipids WNL Continue Suboxone 16/4 Mg Film DAILY DC'd Zyprexa to start ziprasidone I spent minutes with the patient and/or on the patient floor today, greater than?50% of which was spent counseling/coordinating care. Patient educated on: diagnosis and medication risk/benefits Informed Consent: further education needed Reason for contiued inpatient stay Substantial Risk for: inability to function and rapid decompensation
[2021-10-03] MEDS: Ziprasidone 60 MG CAPSULE PO (16:17)
[2021-10-04] MEDS: traZODone HCL 50 MG TABLET PO (03:10)
[2021-10-04] MEDS: hydrOXYzine HCL 25 MG TABLET PO (03:10)
[2021-10-04 06:00] VITALS: BP 121/72; PULSE 79; RESP 18; TEMP 36.6; O2SAT 99
[2021-10-04] MEDS: Buprenorphine/Naloxone 8/2 mg FILM 2 FILM SUBLINGUAL (08:18)
[2021-10-04] MEDS: Ziprasidone 60 MG CAPSULE PO ×2 (08:18→18:53)
--- NOTE | 2021-10-04 10:21 | HO.PSYCHPN ---
Subjective Subjective Date of Service: 10/04/21 Reason For Visit: Psychosis Interim History: says he's alright. Also says AH better and then says no voices at all. he was up most of the night; he does not know why still speech latency and pt says he can tell that he's still talking slowly but does not know why. Agrees to medication ativan to see if this can help having nightmares (maybe this is why does not sleep) dressed a little better eating and drinking fluids has not showered Mental Status Exam Mental Status Exam Narrative: Pt is alert and oriented; behavior is disorganized, but more calm; dressed in jeans and T-shirt; unkempt cloths, hair and poor hygiene; mood is described as alright though affect blunted; eye contact minimal, though a little better; Speech is still slowed and with significant speech latency, thought a little less so and volume a little better; some psychomotor retardation present; thought process can be briefly goal oriented but again becomes disorganized and interrupted by internal pre-occupation; Thought content vacuous, dealing with being internally preoccupied; also on why he is having auditory hallucinations; No SI/HI; Patients insight and judgment are impaired. Diagnostics Vital Signs (24Hr): Vital Signs - 24 hr 10/04/21 06:00 Temperature 97.9 F Pulse Rate 79 Respiratory Rate 18 Blood Pressure 121/72 Pulse Oximetry 99 BMI result Body Mass Index 33.3 Labs Results: 09/27/21 15:44 09/27/21 15:43 Imaging Radiology Impressions: ITS Impressions Chest X-Ray 09/27/21 16:05 IMPRESSION: Normal portable chest x-ray. Head CT 09/27/21 17:11 IMPRESSION: 1. No acute intracranial pathology. Medications Medications Current Medications Acetaminophen (Acetaminophen 325 Mg Tablet) 650 mg PO Q6H PRN PRN Reason: Headache/Pain Mild Scale (1-3) Al Hydroxide/Mg Hydroxide (Magnesium Hydrox/Alum Hydrox 30 Ml Oral.Susp) 30 ml PO Q6H PRN PRN Reason: Heartburn/Nausea Buprenorphine/Naloxone (Buprenorphine/Naloxone 8/2 Mg Film) 2 film SUBLINGUAL DAILY BART Last Admin: 10/04/21 08:18 Dose: 2 film Hydroxyzine HCl (Hydroxyzine Hcl 25 Mg Tablet) 25 mg PO BEDTIME PRN PRN Reason: Anxiety Last Admin: 10/04/21 03:10 Dose: 25 mg Magnesium Hydroxide (Milk Of Magnesia 30 Ml Oral.Susp) 30 ml PO DAILY PRN PRN Reason: Constipation Trazodone HCl (Trazodone Hcl 50 Mg Tablet) 50 mg PO BEDTIME PRN PRN Reason: Insomnia Last Admin: 10/04/21 03:10 Dose: 50 mg Ziprasidone (Ziprasidone 60 Mg Capsule) 60 mg PO BIDWM BART Last Admin: 10/04/21 08:18 Dose: 60 mg Allergies Allergies Allergy/AdvReac Type Severity Reaction Status Date / Time No Known Allergies Allergy Verified 09/27/21 15:37 Assessment & Plan Assessment & Plan (1) Psychosis: Status: Acute Code(s): F29 - Unspecified psychosis not due to a substance or known physiological condition Plan HPI: Interview limited as patient presents as internally preoccupied with thought blocking.? He endorses hearing things.? From crisis notes comments are negative in nature and telling him to hurt himself.? Reports today that this is not him and he is not sure what is happening.? Does appear scared. ? Does endorse hearing voices and states they say inappropriate things and unable to elaborate.? Denies wanting to hurt himself.? No evidence of HI.? Does endorse feeling depressed.? Sleep has been problematic.? No overt mansi.? Is allowing care to be delivered. States his kid's mother kicked him out a couple of days ago.? Said he was drinking liquor which he denies.? Blood alcohol level was in the 160s. ? There is no evidence of withdrawal.? Reported when she kicked him out, he called his mom as he needed to change and address for his ankle bracelet.? He is unable to state what happened after that.? Legal situation is unclear and unable to elaborate on same.? Did reference that he was trying to work because he would be going away for a long time. ? Asked regarding Suboxone dosing and unable to elaborate on same or why he was also declining Suboxone- ? Reviewed [facility].? There is only 1 Suboxone prescription for 7 days on 09/13/2021, ? For 8 mg tabs 2 per day. Given same will DC suboxone order, until patient able to engage more ref same. Past Psychiatric History:? very unclear.? Stated he did not have any psychiatric history.? And stated he had a suicide attempt couple of years ago but unable to give details. Hospital course: presents with auditory hallucinations and thought disorder for unclear time frame. Background history unclear. Medical workup unremarkable. After a few doses of Zyprexa reported as not that helpful and no reduction in AH so patient agreed to change to ziprasidone, chosen for its side effect profile lower risk of TD than typical antipsychotic. 10/03 Patient Remains with speech latency and disorganized behavior and speech; Speech Is a little less latent; remains confused. Continues to have troublesome AH and given a p.r.n.; will increase ziprasidone further. Initially it seemed that is a present own was lowering AH but now it is not clear. If symptoms do not get better with this next increase, will likely consider switching to a different antipsychotic. 10/04 auditory hallucinations are reported to have been resolved. He remains with significant speech latency and slowed speech; also he remains disorganized and confused. Inserter Promotional Item considers possibly maybe some catatonic symptoms so will start Ativan trial which patient agrees with. Also insomnia which may be due to trying to avoid nightmares so will start prazosin. Collateral obtained from sister and patient was incarcerated for the past 18 months only recently discharged and family is vague on history of presentation; apparently he did have trigger the hospital for AH one time during his incarceration. Also there is a report of auditory hallucinations when he was younger. PLAN: CV Q 15 minute checks START Ativan 1mg TID (with taper) to see if part of presentation is due to catatonic symptoms (rather than just psychosis) Increased to Ziprasidone 60 mg b.i.d. with meals (was 40mg bid yesterday) Start prazosin 1mg qhs for nightmares. repeat EKG on 10/03: ? QTc Int : 435 ms HBA1C/lipids WNL Continue Suboxone 16/4 Mg Film DAILY DC'd Zyprexa to start ziprasidone I spent minutes with the patient and/or on the patient floor today, greater than?50% of which was spent counseling/coordinating care. Patient educated on: diagnosis and medication risk/benefits Informed Consent: further education needed Reason for contiued inpatient stay Substantial Risk for: inability to function and rapid decompensation
[2021-10-04] MEDS: LORazepam 1 MG TABLET PO ×3 (13:52→20:33)
[2021-10-04 20:30] VITALS: BP 116/67; PULSE 99; TEMP 36.8
[2021-10-04] MEDS: Prazosin HCL 1 MG CAPSULE PO (20:32)
[2021-10-05 06:00] VITALS: BP 114/62; PULSE 84; RESP 16; TEMP 36.6; O2SAT 98
[2021-10-05] MEDS: Buprenorphine/Naloxone 8/2 mg FILM 2 FILM SUBLINGUAL (08:13)
[2021-10-05] MEDS: LORazepam 1 MG TABLET PO ×3 (08:14→19:56)
[2021-10-05] MEDS: Ziprasidone 60 MG CAPSULE PO ×2 (08:14→16:33)
--- NOTE | 2021-10-05 09:09 | P.PNPSI_ITS ---
Subjective Subjective Date of Service: 10/05/21 Reason For Visit: Psychosis Interim History: Patient says he is doing better. Says voices are gone. He also says that he thinks more clearly. Patient reports sleeping well and denies any nightmares. He asked about discharge and agreed to discuss it more for early next week. Still some disorganization and he is not clear exactly why he is on the unit. Mental Status Exam Mental Status Exam Narrative: Pt is alert and oriented; behavior is more organized; dressed in jeans and T- shirt; unkempt cloths, hair and poor hygiene; mood is described as alright affect a little more natural and less blunted; eye contact minimal, though a little better; Speech is still much less latent; volume a little better; some psychomotor retardation present; thought process goal oriented; still with internal pre-occupation but less so; Thought content on discharge; somewhat vacuous; Denies AVH. No SI/HI; Patients insight and judgment are impaired but improved. Diagnostics Vital Signs (24Hr): Vital Signs - 24 hr 10/04/21 20:30 10/05/21 06:00 Temperature 98.2 F 97.9 F Pulse Rate 99 84 Respiratory Rate 16 Blood Pressure 116/67 114/62 Pulse Oximetry 98 BMI result Body Mass Index 33.3 Labs Results: 09/27/21 15:44 09/27/21 15:43 Imaging Radiology Impressions: ITS Impressions Chest X-Ray 09/27/21 16:05 IMPRESSION: Normal portable chest x-ray. Head CT 09/27/21 17:11 IMPRESSION: 1. No acute intracranial pathology. Medications Medications Current Medications Acetaminophen (Acetaminophen 325 Mg Tablet) 650 mg PO Q6H PRN PRN Reason: Headache/Pain Mild Scale (1-3) Al Hydroxide/Mg Hydroxide (Magnesium Hydrox/Alum Hydrox 30 Ml Oral.Susp) 30 ml PO Q6H PRN PRN Reason: Heartburn/Nausea Benztropine Mesylate (Benztropine Mesylate 0.5 Mg Tablet) 0.5 mg PO TID PRN PRN Reason: Extrapyramidal Effects Buprenorphine/Naloxone (Buprenorphine/Naloxone 8/2 Mg Film) 2 film SUBLINGUAL DAILY BART Last Admin: 10/05/21 08:13 Dose: 2 film Hydroxyzine HCl (Hydroxyzine Hcl 25 Mg Tablet) 25 mg PO BEDTIME PRN PRN Reason: Anxiety Last Admin: 10/04/21 03:10 Dose: 25 mg Lorazepam (Lorazepam 1 Mg Tablet) 1 mg PO TID BART Stop: 10/05/21 23:50 Last Admin: 10/05/21 08:14 Dose: 1 mg Lorazepam (Lorazepam 1 Mg Tablet) 1 mg PO BID BART Stop: 10/07/21 23:50 Lorazepam (Lorazepam 1 Mg Tablet) 1 mg PO DAILY BART Magnesium Hydroxide (Milk Of Magnesia 30 Ml Oral.Susp) 30 ml PO DAILY PRN PRN Reason: Constipation Prazosin HCl (Prazosin Hcl 1 Mg Capsule) 1 mg PO BEDTIME BART; Protocol Last Admin: 10/04/21 20:32 Dose: 1 mg Trazodone HCl (Trazodone Hcl 50 Mg Tablet) 50 mg PO BEDTIME PRN PRN Reason: Insomnia Last Admin: 10/04/21 03:10 Dose: 50 mg Ziprasidone (Ziprasidone 60 Mg Capsule) 60 mg PO BIDWM BART Last Admin: 10/05/21 08:14 Dose: 60 mg Allergies Allergies Allergy/AdvReac Type Severity Reaction Status Date / Time No Known Allergies Allergy Verified 09/27/21 15:37 Assessment & Plan Assessment & Plan (1) Psychosis: Status: Acute Code(s): F29 - Unspecified psychosis not due to a substance or known physiological condition Plan HPI: Interview limited as patient presents as internally preoccupied with thought blocking.? He endorses hearing things.? From crisis notes comments are negative in nature and telling him to hurt himself.? Reports today that this is not him and he is not sure what is happening.? Does appear scared. ? Does endorse hearing voices and states they say inappropriate things and unable to elaborate.? Denies wanting to hurt himself.? No evidence of HI.? Does endorse feeling depressed.? Sleep has been problematic.? No overt mansi.? Is allowing care to be delivered. States his kid's mother kicked him out a couple of days ago.? Said he was drinking liquor which he denies.? Blood alcohol level was in the 160s. ? There is no evidence of withdrawal.? Reported when she kicked him out, he called his mom as he needed to change and address for his ankle bracelet.? He is unable to state what happened after that.? Legal situation is unclear and unable to elaborate on same.? Did reference that he was trying to work because he would be going away for a long time. ? Asked regarding Suboxone dosing and unable to elaborate on same or why he was also declining Suboxone- ? Reviewed [facility].? There is only 1 Suboxone prescription for 7 days on 09/13/2021, ? For 8 mg tabs 2 per day. Given same will DC suboxone order, until patient able to engage more ref same. Past Psychiatric History:? very unclear.? Stated he did not have any psychiatric history.? And stated he had a suicide attempt couple of years ago but unable to give details. Hospital course: presents with auditory hallucinations and thought disorder for unclear time frame. Background history unclear. Medical workup unremarkable. After a few doses of Zyprexa reported as not that helpful and no reduction in AH so patient agreed to change to ziprasidone, chosen for its side effect profile lower risk of TD than typical antipsychotic. 10/03 Patient Remains with speech latency and disorganized behavior and speech; Speech Is a little less latent; remains confused. Continues to have troublesome AH and given a p.r.n.; will increase ziprasidone further. Initially it seemed that is a present own was lowering AH but now it is not clear. If symptoms do not get better with this next increase, will likely consider switching to a different antipsychotic. 10/04 auditory hallucinations are reported to have been resolved. He remains with significant speech latency and slowed speech; also he remains disorganized and confused. Clinical Informatics Specialist considers possibly maybe some catatonic symptoms so will start Ativan trial which patient agrees with. Also insomnia which may be due to trying to avoid nightmares so will start prazosin. Collateral obtained from sister and patient was incarcerated for the past 18 months only recently discharged and family is vague on history of presentation; apparently he did have trigger the hospital for AH one time during his incarceration. Also there is a report of auditory hallucinations when he was younger. 10/05 patient doing better. Speech is still latent but significantly better and no longer her quiet. Patient still internally preoccupied but less so. More organized and agrees to take a shower. Says auditory hallucinations are gone and now asking about discharge. Still mostly isolative and does not say much. Still trouble with insight and not really sure why came to the hospital in the place. Clinical Informatics Specialist discussed. PLAN: CV Q 15 minute checks Ativan 1mg TID (with taper) to see if part of presentation is due to catatonic symptoms (rather than just psychosis) Increased to Ziprasidone 60 mg b.i.d. with meals (was 40mg bid yesterday) Start prazosin 1mg qhs for nightmares. repeat EKG on 10/03: ? QTc Int : 435 ms HBA1C/lipids WNL Continue Suboxone 16/4 Mg Film DAILY DC'd Zyprexa to start ziprasidone I spent minutes with the patient and/or on the patient floor today, greater than?50% of which was spent counseling/coordinating care. Patient educated on: diagnosis Informed Consent: further education needed Reason for contiued inpatient stay Substantial Risk for: rapid decompensation
[2021-10-05 18:00] VITALS: BP 137/76; PULSE 107; TEMP 36.7
[2021-10-05] MEDS: Prazosin HCL 1 MG CAPSULE PO (19:56)
[2021-10-06 06:00] VITALS: BP 118/70; PULSE 101; RESP 16; TEMP 36.4; O2SAT 98
[2021-10-06] MEDS: Ziprasidone 60 MG CAPSULE PO ×2 (08:28→18:04)
[2021-10-06] MEDS: Buprenorphine/Naloxone 8/2 mg FILM 2 FILM SUBLINGUAL (08:28)
[2021-10-06] MEDS: LORazepam 1 MG TABLET PO ×3 (08:28→20:18)
--- NOTE | 2021-10-06 15:02 | P.PNPSI_ITS ---
Subjective Subjective Date of Service: 10/06/21 Reason For Visit: Psychosis Interim History: Patient still with some speech latency and internal preoccupation however less so. He says my mood is better when asked how he can tell, he says I do not know I just feel better... He denies any auditory hallucinations saying they are completely gone. He says he is sleeping well and denies any nightmares. Patient said he could not remember if he showered yesterday but said he would today. Mental Status Exam Mental Status Exam Narrative: Pt is alert and oriented; behavior is more organized; dressed in jeans and T- shirt; unkempt cloths, hair and poor hygiene; mood is described as better and affect a little more natural, though still blunted; eye contact minimal, though better; Speech much less latent; volume better; some psychomotor retardation present; thought process goal oriented; still with internal pre-occupation but less so; Thought content on discharge; somewhat vacuous; Denies AVH. No SI/HI; Patients insight and judgment are impaired but improved. Diagnostics Vital Signs (24Hr): Vital Signs - 24 hr 10/05/21 18:00 10/06/21 06:00 Temperature 98.1 F 97.6 F Pulse Rate 107 H 101 H Respiratory Rate 16 Blood Pressure 137/76 118/70 Pulse Oximetry 98 BMI result Body Mass Index 33.3 Labs Results: 09/27/21 15:44 09/27/21 15:43 Imaging Radiology Impressions: ITS Impressions Chest X-Ray 09/27/21 16:05 IMPRESSION: Normal portable chest x-ray. Head CT 09/27/21 17:11 IMPRESSION: 1. No acute intracranial pathology. Medications Medications Current Medications Acetaminophen (Acetaminophen 325 Mg Tablet) 650 mg PO Q6H PRN PRN Reason: Headache/Pain Mild Scale (1-3) Al Hydroxide/Mg Hydroxide (Magnesium Hydrox/Alum Hydrox 30 Ml Oral.Susp) 30 ml PO Q6H PRN PRN Reason: Heartburn/Nausea Benztropine Mesylate (Benztropine Mesylate 0.5 Mg Tablet) 0.5 mg PO TID PRN PRN Reason: Extrapyramidal Effects Buprenorphine/Naloxone (Buprenorphine/Naloxone 8/2 Mg Film) 2 film SUBLINGUAL DAILY BART Last Admin: 10/06/21 08:28 Dose: 2 film Hydroxyzine HCl (Hydroxyzine Hcl 25 Mg Tablet) 25 mg PO BEDTIME PRN PRN Reason: Anxiety Last Admin: 10/04/21 03:10 Dose: 25 mg Lorazepam (Lorazepam 1 Mg Tablet) 1 mg PO TID BART Stop: 10/06/21 23:50 Last Admin: 10/06/21 14:19 Dose: 1 mg Lorazepam (Lorazepam 1 Mg Tablet) 1 mg PO BID BART Stop: 10/08/21 23:50 Lorazepam (Lorazepam 1 Mg Tablet) 1 mg PO DAILY BART Stop: 10/09/21 23:50 Magnesium Hydroxide (Milk Of Magnesia 30 Ml Oral.Susp) 30 ml PO DAILY PRN PRN Reason: Constipation Prazosin HCl (Prazosin Hcl 1 Mg Capsule) 1 mg PO BEDTIME BART; Protocol Last Admin: 10/05/21 19:56 Dose: 1 mg Trazodone HCl (Trazodone Hcl 50 Mg Tablet) 50 mg PO BEDTIME PRN PRN Reason: Insomnia Last Admin: 10/04/21 03:10 Dose: 50 mg Ziprasidone (Ziprasidone 60 Mg Capsule) 60 mg PO BIDWM BART Last Admin: 10/06/21 08:28 Dose: 60 mg Allergies Allergies Allergy/AdvReac Type Severity Reaction Status Date / Time No Known Allergies Allergy Verified 09/27/21 15:37 Assessment & Plan Assessment & Plan (1) Psychosis: Status: Acute Code(s): F29 - Unspecified psychosis not due to a substance or known physiological condition Plan HPI: Interview limited as patient presents as internally preoccupied with thought blocking.? He endorses hearing things.? From crisis notes comments are negative in nature and telling him to hurt himself.? Reports today that this is not him and he is not sure what is happening.? Does appear scared. ? Does endorse he aring voices and states they say inappropriate things and unable to elaborate.? Denies wanting to hurt himself.? No evidence of HI.? Does endorse feeling depressed.? Sleep has been problematic.? No overt mansi.? Is allowing care to be delivered. States his kid's mother kicked him out a couple of days ago.? Said he was drinking liquor which he denies.? Blood alcohol level was in the 160s. ? There is no evidence of withdrawal.? Reported when she kicked him out, he called his mom as he needed to change and address for his ankle bracelet.? He is unable to state what happened after that.? Legal situation is unclear and unable to elaborate on same.? Did reference that he was trying to work because he would be going away for a long time. ? Asked regarding Suboxone dosing and unable to elaborate on same or why he was also declining Suboxone- ? Reviewed [facility].? There is only 1 Suboxone prescription for 7 days on 09/13/2021, ? For 8 mg tabs 2 per day. Given same will DC suboxone order, until patient able to engage more ref same. Past Psychiatric History:? very unclear.? Stated he did not have any psychiatric history.? And stated he had a suicide attempt couple of years ago but unable to give details. Hospital course: presents with auditory hallucinations and thought disorder for unclear time frame. Background history unclear. Medical workup unremarkable. After a few doses of Zyprexa reported as not that helpful and no reduction in AH so patient agreed to change to ziprasidone, chosen for its side effect profile lower risk of TD than typical antipsychotic. 10/03 Patient Remains with speech latency and disorganized behavior and speech; Speech Is a little less latent; remains confused. Continues to have troublesome AH and given a p.r.n.; will increase ziprasidone further. Initially it seemed that is a present own was lowering AH but now it is not clear. If symptoms do not get better with this next increase, will likely consider switching to a dif ferent antipsychotic. 10/04 auditory hallucinations are reported to have been resolved. He remains with significant speech latency and slowed speech; also he remains disorganized and confused. Asbestos Hazard Abatement Worker considers possibly maybe some catatonic symptoms so will start Ativan trial which patient agrees with. Also insomnia which may be due to trying to avoid nightmares so will start prazosin. Collateral obtained from sister and patient was incarcerated for the past 18 months only recently discharged and family is vague on history of presentation; apparently he did have trigger the hospital for AH one time during his incarceration. Also there is a report of auditory hallucinations when he was younger. 10/05 patient doing better. Speech is still latent but significantly better and no longer her quiet. Patient still internally preoccupied but less so. More organized and agrees to take a shower. Says auditory hallucinations are gone and now asking about discharge. Still mostly isolative and does not say much. Still trouble with insight and not really sure why came to the hospital in [address]. Asbestos Hazard Abatement Worker discussed. 10/06 remains without AH and says he is thinking more clearly; also says that he is feeling better. Not sure what patient's baseline is and will need to get collateral. He is in the milieu more often. Still has not showered PLAN: CV Q 15 minute checks Ativan 1mg TID (with taper) to see if part of presentation is due to catatonic symptoms (rather than just psychosis) Increased to Ziprasidone 60 mg b.i.d. with meals (was 40mg bid yesterday) Start prazosin 1mg qhs for nightmares. repeat EKG on 10/03: ? QTc Int : 435 ms HBA1C/lipids WNL Continue Suboxone 16/4 Mg Film DAILY DC'd Zyprexa to start ziprasidone I spent minutes with the patient and/or on the patient floor today, greater than?50% of which was spent counseling/coordinating care. Patient educated on: diagnosis Informed Consent: understands and further education needed Reason for contiued inpatient stay Substantial Risk for: rapid decompensation
[2021-10-06 20:05] VITALS: BP 131/78; PULSE 99; TEMP 36.6
[2021-10-06] MEDS: Prazosin HCL 1 MG CAPSULE PO (20:18)
[2021-10-07 06:00] VITALS: BP 118/71; PULSE 82; RESP 18; TEMP 36.6; O2SAT 99
[2021-10-07] MEDS: Buprenorphine/Naloxone 8/2 mg FILM 2 FILM SUBLINGUAL (08:38)
[2021-10-07] MEDS: Ziprasidone 60 MG CAPSULE PO ×2 (08:38→16:33)
[2021-10-07] MEDS: LORazepam 1 MG TABLET PO ×2 (09:26→19:22)
--- NOTE | 2021-10-07 10:20 | P.PNPSI_ITS ---
Subjective Subjective Date of Service: 10/07/21 Reason For Visit: Psychosis Interim History: pt reports he's feeling better. He said that being here has actually helped. It took away a lot of stress.... Help make clear my mind. Patient says he remembers being confused and wanted to discuss his diagnosis. Automatic Operator explained psychotic illness schizophrenia, symptoms and need for medication. Patient said I did not know I had that until now. I want to hear it so I can be able to co pe with it. .. Fix it. Patient understand the need for medication. Automatic Operator reviewed risks and side effects of this medication which patient said he understood. He reports he is sleeping well and feels ready to discharge home. He says he is feeling back to his regular self. Automatic Operator spoke with patient's Mother and sister who saw patient on Thursday10/05/21 and they feel that he's back to his regular self and ready for discharge. They say he has been psychiatrically hospitalized since he was a child and has that many hospitalizations over his life time. Mental Status Exam Mental Status Exam Narrative: Pt is alert and oriented; behavior is more organized; dressed in jeans and T- shirt; unkempt cloths, hair and poor hygiene; mood is described as better and affect, brighter, more natural;lessl blunted; eye contact appropriate; Speech much less latent; volume appropriate; no psychomotor retardation present; thought process goal oriented; Denies AVH and seems much less internally pre- occupied; Thought content on diagnosis; on discharge, worried about probation; AVH. No SI/HI; Patients insight and judgment are fair and adequate. Diagnostics Vital Signs (24Hr): Vital Signs - 24 hr 10/06/21 20:05 10/07/21 06:00 Temperature 97.9 F 97.9 F Pulse Rate 99 82 Respiratory Rate 18 Blood Pressure 131/78 118/71 Pulse Oximetry 99 BMI result Body Mass Index 33.3 Labs Results: 09/27/21 15:44 09/27/21 15:43 Imaging Radiology Impressions: ITS Impressions Chest X-Ray 09/27/21 16:05 IMPRESSION: Normal portable chest x-ray. Head CT 09/27/21 17:11 IMPRESSION: 1. No acute intracranial pathology. Medications Medications Current Medications Acetaminophen (Acetaminophen 325 Mg Tablet) 650 mg PO Q6H PRN PRN Reason: Headache/Pain Mild Scale (1-3) Al Hydroxide/Mg Hydroxide (Magnesium Hydrox/Alum Hydrox 30 Ml Oral.Susp) 30 ml PO Q6H PRN PRN Reason: Heartburn/Nausea Benztropine Mesylate (Benztropine Mesylate 0.5 Mg Tablet) 0.5 mg PO TID PRN PRN Reason: Extrapyramidal Effects Buprenorphine/Naloxone (Buprenorphine/Naloxone 8/2 Mg Film) 2 film SUBLINGUAL DAILY BART Last Admin: 10/07/21 08:38 Dose: 2 film Hydroxyzine HCl (Hydroxyzine Hcl 25 Mg Tablet) 25 mg PO BEDTIME PRN PRN Reason: Anxiety Last Admin: 10/04/21 03:10 Dose: 25 mg Lorazepam (Lorazepam 1 Mg Tablet) 1 mg PO DAILY BART Stop: 10/09/21 23:50 Lorazepam (Lorazepam 1 Mg Tablet) 1 mg PO BID BART Stop: 10/08/21 22:01 Last Admin: 10/07/21 09:26 Dose: 1 mg Magnesium Hydroxide (Milk Of Magnesia 30 Ml Oral.Susp) 30 ml PO DAILY PRN PRN Reason: Constipation Prazosin HCl (Prazosin Hcl 1 Mg Capsule) 1 mg PO BEDTIME BART; Protocol Last Admin: 10/06/21 20:18 Dose: 1 mg Trazodone HCl (Trazodone Hcl 50 Mg Tablet) 50 mg PO BEDTIME PRN PRN Reason: Insomnia Last Admin: 10/04/21 03:10 Dose: 50 mg Ziprasidone (Ziprasidone 60 Mg Capsule) 60 mg PO BIDWM BART Last Admin: 10/07/21 08:38 Dose: 60 mg Allergies Allergies Allergy/AdvReac Type Severity Reaction Status Date / Time No Known Allergies Allergy Verified 09/27/21 15:37 Assessment & Plan Assessment & Plan (1) Psychosis: Status: Acute Code(s): F29 - Unspecified psychosis not due to a substance or known physiological condition Plan HPI: Interview limited as patient presents as internally preoccupied with thought blocking.? He endorses hearing things.? From crisis notes comments are negative in nature and telling him to hurt himself.? Reports today that this is not him and he is not sure what is happening.? Does appear scared. ? Does endorse hearing voices and states they say inappropriate things and unable to elaborate.? Denies wanting to hurt himself.? No evidence of HI.? Does endorse feeling depressed.? Sleep has been problematic.? No overt mansi.? Is allowing care to be delivered. States his kid's mother kicked him out a couple of days ago.? Said he was drinking liquor which he denies.? Blood alcohol level was in the 160s. ? There is no evidence of withdrawal.? Reported when she kicked him out, he called his mom as he needed to change and address for his ankle bracelet.? He is unable to state what happened after that.? Legal situation is unclear and unable to elaborate on same.? Did reference that he was trying to work because he would be going away for a long time. ? Asked regarding Suboxone dosing and unable to elaborate on same or why he was also declining Suboxone- ? Reviewed [facility].? There is only 1 Suboxone prescription for 7 days on 09/13, ? For 8 mg tabs 2 per day. Given same will DC suboxone order, until patient able to engage more ref same. Past Psychiatric History:? very unclear.? Stated he did not have any psychiatric history.? And stated he had a suicide attempt couple of years ago but unable to give details. Hospital course: presents with auditory hallucinations and thought disorder for unclear time frame. Background history unclear. Medical workup unremarkable. After a few doses of Zyprexa reported as not that helpful and no reduction in AH so patient agreed to change to ziprasidone, chosen for its side effect profile lower risk of TD than typical antipsychotic. 10/03 Patient Remains with speech latency and disorganized behavior and speech; Speech Is a little less latent; remains confused. Continues to have troublesome AH and given a p.r.n.; will increase ziprasidone further. Initially it seemed that is a present own was lowering AH but now it is not clear. If symptoms do not get better with this next increase, will likely consider switching to a different antipsychotic. 10/04 auditory hallucinations are reported to have been resolved. He remains with significant speech latency and slowed speech; also he remains disorganized and confused. Automatic Operator considers possibly maybe some catatonic symptoms so will start Ativan trial which patient agrees with. Also insomnia which may be due to trying to avoid nightmares so will start prazosin. Collateral obtained from sister and patient was incarcerated for the past 18 months only recently discharged and family is vague on history of presentation; apparently he did have trigger the hospital for AH one time during his incarceration. Also there is a report of auditory hallucinations when he was younger. 10/05 patient doing better. Speech is still latent but significantly better and no longer her quiet. Patient still internally preoccupied but less so. More organized and agrees to take a shower. Says auditory hallucinations are gone and now asking about discharge. Still mostly isolative and does not say much. Still trouble with insight and not really sure why came to the hospital in the 1st place. Automatic Operator discussed. -started Ativan 1 mg t.i.d. for catatonic like symptoms 10/06 remains without AH and says he is thinking more clearly; also says that he is feeling better. Not sure what patient's baseline is and will need to get collateral. He is in the milieu more often. Still has not showered 10/06 significantly better, with little speech latency; organized speech and mostly behavior (still isolative and malodorous); patient's insight has significantly improved any understands that he has a psychiatric illness that requires medication. He reports feeling grateful to finally no he has a diagnosis and how to treat it. Denies any AVH; reports mood is better and that he feels his mind is much more clear and no longer feels confused. Patient would like to discuss discharge. Discussed case with his mother and sister who think that patient is pretty much back to his regular self. Social work trying to get patient providers in his area. Patient is also on Suboxone and will need a Suboxone provider. PLAN: CV Q 15 minute checks Ativan 1mg TID taper Increased to Ziprasidone 60 mg b.i.d. with meals (was 40mg bid yesterday) Start prazosin 1mg qhs for nightmares. repeat EKG on 10/03: ? QTc Int : 435 ms HBA1C/lipids WNL Continue Suboxone 16/4 Mg Film DAILY DC'd Zyprexa to start ziprasidone I spent minutes with the patient and/or on the patient floor today, greater than?50% of which was spent counseling/coordinating care. Patient educated on: diagnosis and medication risk/benefits Informed Consent: understands Reason for contiued inpatient stay Substantial Risk for: stable for discharge
[2021-10-07 19:19] VITALS: BP 119/70; PULSE 113
[2021-10-07] MEDS: Prazosin HCL 1 MG CAPSULE PO (19:22)
[2021-10-08] MEDS: LORazepam 1 MG TABLET PO ×2 (08:34→21:10)
[2021-10-08] MEDS: Ziprasidone 60 MG CAPSULE PO ×2 (08:34→17:04)
[2021-10-08] MEDS: Buprenorphine/Naloxone 8/2 mg FILM 2 FILM SUBLINGUAL (08:34)
[2021-10-08 08:52] VITALS: BP 122/75; PULSE 106; RESP 18; TEMP 36.3; O2SAT 98
--- NOTE | 2021-10-08 15:01 | P.PNPSI_ITS ---
Subjective Subjective Date of Service: 10/08/21 Reason For Visit: Psychosis Interim History: Patient remains feeling better, no voices, feeling clear minded and back to his regular self. Sleeping fine. Talking about discharge. Pt will keep taking his medications. Mental Status Exam Mental Status Exam Narrative: Pt is alert and oriented; behavior is more organized; dressed in jeans and T- shirt; unkempt hair but good hygiene; mood is described as alright and affect remains brighter, more natural;less blunted; eye contact appropriate; Speech much less latent; volume appropriate; no psychomotor retardation present; thought process goal oriented; Denies AVH; much less internally pre-occupied; Thought content on diagnosis and on discharge, worried about probation; AVH. No SI/HI; Patients insight and judgment are fair and adequate. Diagnostics Vital Signs (24Hr): Vital Signs - 24 hr 10/07/21 19:19 10/08/21 08:52 Temperature 97.3 F Pulse Rate 113 H 106 H Respiratory Rate 18 Blood Pressure 119/70 122/75 Pulse Oximetry 98 Oxygen Delivery Method Room Air BMI result Body Mass Index 33.3 Labs Results: 09/27/21 15:44 09/27/21 15:43 Imaging Radiology Impressions: ITS Impressions Chest X-Ray 09/27/21 16:05 IMPRESSION: Normal portable chest x-ray. Head CT 09/27/21 17:11 IMPRESSION: 1. No acute intracranial pathology. Medications Medications Current Medications Acetaminophen (Acetaminophen 325 Mg Tablet) 650 mg PO Q6H PRN PRN Reason: Headache/Pain Mild Scale (1-3) Al Hydroxide/Mg Hydroxide (Magnesium Hydrox/Alum Hydrox 30 Ml Oral.Susp) 30 ml PO Q6H PRN PRN Reason: Heartburn/Nausea Benztropine Mesylate (Benztropine Mesylate 0.5 Mg Tablet) 0.5 mg PO TID PRN PRN Reason: Extrapyramidal Effects Buprenorphine/Naloxone (Buprenorphine/Naloxone 8/2 Mg Film) 2 film SUBLINGUAL DAILY BART Last Admin: 10/08/21 08:34 Dose: 2 film Hydroxyzine HCl (Hydroxyzine Hcl 25 Mg Tablet) 25 mg PO BEDTIME PRN PRN Reason: Anxiety Last Admin: 10/04/21 03:10 Dose: 25 mg Lorazepam (Lorazepam 1 Mg Tablet) 1 mg PO DAILY BART Stop: 10/09/21 23:50 Lorazepam (Lorazepam 1 Mg Tablet) 1 mg PO BID BART Stop: 10/08/21 22:01 Last Admin: 10/08/21 08:34 Dose: 1 mg Magnesium Hydroxide (Milk Of Magnesia 30 Ml Oral.Susp) 30 ml PO DAILY PRN PRN Reason: Constipation Prazosin HCl (Prazosin Hcl 1 Mg Capsule) 1 mg PO BEDTIME BART; Protocol Last Admin: 10/07/21 19:22 Dose: 1 mg Trazodone HCl (Trazodone Hcl 50 Mg Tablet) 50 mg PO BEDTIME PRN PRN Reason: Insomnia Last Admin: 10/04/21 03:10 Dose: 50 mg Ziprasidone (Ziprasidone 60 Mg Capsule) 60 mg PO BIDWM BART Last Admin: 10/08/21 08:34 Dose: 60 mg Allergies Allergies Allergy/AdvReac Type Severity Reaction Status Date / Time No Known Allergies Allergy Verified 09/27/21 15:37 Assessment & Plan Assessment & Plan (1) Psychosis: Status: Acute Code(s): F29 - Unspecified psychosis not due to a substance or known physiological condition Plan HPI: Interview limited as patient presents as internally preoccupied with thought blocking.? He endorses hearing things.? From crisis notes comments are negative in nature and telling him to hurt himself.? Reports today that this is not him and he is not sure what is happening.? Does appear scared. ? Does endorse hearing voices and states they say inappropriate things and unable to elaborate.? Denies wanting to hurt himself.? No evidence of HI.? Does endorse feeling depressed.? Sleep has been problematic.? No overt mansi.? Is allowing care to be delivered. States his kid's mother kicked him out a couple of days ago.? Said he was drinking liquor which he denies.? Blood alcohol level was in t he 160s. ? There is no evidence of withdrawal.? Reported when she kicked him out, he called his mom as he needed to change and address for his ankle bracelet.? He is unable to state what happened after that.? Legal situation is unclear and unable to elaborate on same.? Did reference that he was trying to work because he would be going away for a long time. ? Asked regarding Suboxone dosing and unable to elaborate on same or why he was also declining Suboxone- ? Reviewed [facility].? There is only 1 Suboxone prescription for 7 days on 09/13/2021, ? For 8 mg tabs 2 per day. Given same will DC suboxone order, until patient able to engage more ref same. Past Psychiatric History:? very unclear.? Stated he did not have any psychiatric history.? And stated he had a suicide attempt couple of years ago but unable to give details. Hospital course: presents with auditory hallucinations and thought disorder for unclear time frame. Background history unclear. Medical workup unremarkable. After a few doses of Zyprexa reported as not that helpful and no reduction in AH so patient agreed to change to ziprasidone, chosen for its side effect profile lower risk of TD than typical antipsychotic. 10/03 Patient Remains with speech latency and disorganized behavior and speech; Speech Is a little less latent; remains confused. Continues to have troublesome AH and given a p.r.n.; will increase ziprasidone further. Initially it seemed that is a present own was lowering AH but now it is not clear. If symptoms do not get better with this next increase, will likely consider switching to a different antipsychotic. 10/04 auditory hallucinations are reported to have been resolved. He remains with significant speech latency and slowed speech; also he remains disorganized and confused. Stonemason Apprentice considers possibly maybe some catatonic symptoms so will start Ativan trial which patient agrees with. Also insomnia which may be due to trying to avoid nightmares so will start prazosin. Collateral obtained from sister and patient was incarcerated for the past 18 months only recently discharged and family is vague on history of presentation; apparently he did have trigger the hospital for AH one time during his incarceration. Also there is a report of auditory hallucinations when he was younger. 10/05 patient doing better. Speech is still latent but significantly better and no longer her quiet. Patient still internally preoccupied but less so. More organized and agrees to take a shower. Says auditory hallucinations are gone and now asking about discharge. Still mostly isolative and does not say much. Still trouble with insight and not really sure why came to the hospital in the 1st place. Stonemason Apprentice discussed. -started Ativan 1 mg t.i.d. for catatonic like symptoms 10/06 remains without AH and says he is thinking more clearly; also says that he is feeling better. Not sure what patient's baseline is and will need to get collateral. He is in the milieu more often. Still has not showered 10/06 significantly better, with little speech latency; organized speech and mostly behavior (still isolative and malodorous); patient's insight has significantly improved any understands that he has a psychiatric illness that requires medication. He reports feeling grateful to finally no he has a diagnosis and how to treat it. Denies any AVH; reports mood is better and that he feels his mind is much more clear and no longer feels confused. Patient would like to discuss discharge. Discussed case with his mother and sister who think that patient is pretty much back to his regular self. Social work trying to get patient providers in his area. Patient is also on Suboxone and will need a Suboxone provider. 10/07 Patient remains stable, AH remains resolved; no SI or HI and patient feels clear minded and back to his regular self. Behavior organized, patient s howering and out in the milieu more. Speech latency remains but much less so and patient has insight to know that he has a psychiatric illness that needs medication which she plans to continue. Patient is not imminent risk for harm to self or others appropriate for discharge PLAN: CV Q 15 minute checks Ativan 1mg TID taper Increased to Ziprasidone 60 mg b.i.d. with meals (was 40mg bid yesterday) Start prazosin 1mg qhs for nightmares. repeat EKG on 10/03: ? QTc Int : 435 ms HBA1C/lipids WNL Continue Suboxone 16/4 Mg Film DAILY DC'd Zyprexa to start ziprasidone I spent minutes with the patient and/or on the patient floor today, greater than?50% of which was spent counseling/coordinating care. Patient educated on: diagnosis Informed Consent: understands Reason for contiued inpatient stay Substantial Risk for: stable for discharge
--- NOTE | 2021-10-08 17:31 | P.DS_ITS ---
DS: Providers Provider Date of Service: 10/09/21 Date of admission: 09/29/21 14:49 Date of discharge: 10/09/21 Primary care physician: Unknown Physician Attending physician on admission: Dick Briceno Attending physician on discharge: Villa Perea DS: Diagnosis Discharge Diagnosis (1) Psychosis: Status: Acute DS: Medications Discharge Medications Home Medications: Previous Rx's Medication Instructions Recorded buprenorphine 8 mg-naloxone 2 mg 2 film sublingual DAILY 7 days #14 10/08/21 sublingual film ea prazosin 1 mg capsule 1 mg PO BEDTIME 30 days #30 caps 10/08/21 ziprasidone HCl 60 mg capsule 60 mg PO BIDWM 30 days #60 caps 10/08/21 Mental Status Exam Mental Status Exam Narrative: Pt is alert and oriented; behavior is more organized; dressed in jeans and T- shirt; unkempt hair but good hygiene; mood is described as good and affect remains brighter and no longer blunted; eye contact appropriate; Speech normal volume, rate and prosody; no speech latency; no psychomotor retardation present; thought process goal oriented; Denies AVH; no signs of being internally pre- occupied; Thought content on diagnosis and on discharge, worried about probation; No AVH. No SI/HI; Patients insight and judgment are fair and a dequate. Data Data Completed and Pending Completed studies during hospitalization [Text1]: 10/02/21 10/02/21 08:35 08:36 Estimat Average Glucose 74 Hemoglobin A1c % 4.2 Triglycerides 59 Cholesterol 120 LDL Cholesterol, Calc 82 HDL Cholesterol 27 Imaging Diagnostic Imaging Impressions Chest X-Ray 09/27/21 16:05 IMPRESSION: Normal portable chest x-ray. Head CT 09/27/21 17:11 IMPRESSION: 1. No acute intracranial pathology. DS: Summary Hospital Course Hospital Course: ?HPI: Patient is a 26-year-old male with history of increasing psychotic symptoms; he presents with auditory hallucinations, significant speech latency and catatonic like behavior. Denies SI. Hospital course: presents with auditory hallucinations and thought disorder for unclear time frame.? Background history unclear.? Medical workup unremarkable.? After a few doses of Zyprexa reported as not that helpful and no reduction in AH so patient agreed to change to ziprasidone, chosen for its side effect profile lower risk of TD than typical antipsychotic. 7/7 Patient Remains with speech latency and disorganized behavior and speech; Speech Is a little less latent; remains confused.? Continues to have troublesome AH and given a p.r.n.; will increase ziprasidone further. Initially it seemed that is a present own was lowering AH but now it is not clear.? If symptoms do not get better with this next increase, will likely consider switching to a different antipsychotic. 10/04 auditory hallucinations are reported to have been resolved.? He remains with significant speech latency and slowed speech; also he remains disorganized and confused.? Nail Making Machine Tender considers possibly maybe some catatonic symptoms so will start Ativan trial which patient agrees with.? Also insomnia which may be due to trying to avoid nightmares so will start prazosin.? Collateral obtained from sister and patient was incarcerated for the past 18 months only recently discharged and family is vague on history of presentation; apparently he did have trigger the hospital for AH one time during his incarceration.? Also there is a report of auditory hallucinations when he was younger. Patient started on prazosin which was helpful and resolve nightmares. 10/05 patient doing better.? Speech is still latent but significantly better and no longer her quiet.? Patient still internally preoccupied but less so.? More organized and agrees to take a shower.? Says auditory hallucinations are gone and now asking about discharge.? Still mostly isolative and does not say much.? Still trouble with insight and not really sure why came to the hospital in the 1st place.? Nail Making Machine Tender discussed. -started Ativan 1 mg t.i.d. for catatonic like symptoms which was helpful. 10/06 remains without AH and says he is thinking more clearly; also says that he is feeling better.? Not sure what patient's baseline is and will need to get collateral.? He is in the milieu more often.? Still has not showered 10/06 significantly better, with little speech latency; organized speech and mostly behavior (still isolative and malodorous); patient's insight has significantly improved any understands that he has a psychiatric illness that requires medication.? He reports feeling grateful to finally no he has a diagnosis and how to treat it.? Denies any AVH; reports mood is better and that he feels his mind is much more clear and no longer feels confused.? Patient would like to discuss discharge.? Discussed case with his mother and sister who think that patient is pretty much back to his regular self.? Social work trying to get patient providers in his area.? Patient is also on Suboxone and will need a Suboxone provider. 10/07 Patient remains stable, AH remains resolved; no SI or HI and patient feels clear minded and back to his regular self.? Behavior organized, patient showering and out in the milieu more.? Speech latency remains but much less so and patient has insight to know that he has a psychiatric illness that needs medication which she plans to continue.? Over next day, patient continued to improve and speech latency resolved, patient talking freely and appropriately. He remained without any AH and expressed gratitude for treatment. He remained with good insight knowing he has a psychiatric disorder that requires medication for treatment and plans to remain medication. At patient's request, credit underwriter wrote patient a letter, mentioning diagnosis and need for treatment. Patient's mother and sister or picking him up and taking him to court on day of discharge. Patient is not imminent risk for harm to self or others appropriate for discharge Time spent discussing smoking cessation with patient: 3 to 10 minutes Status at Discharge Functional status at discharge: independent ambulation Overall status at discharge: patient is back to baseline Time Spent with Patient Time attestation: Total time spent providing and/or coordinating discharge services: Time spent: Greater than 30 minutes Discharge Plan Discharge Patient Disposition: Home, Self-Care Discharge Diagnosis: Schizophrenia Referrals: Suboxone: Dr. Fischer [Other] - 10/11/21 12:00 pm (Please bring a photo ID and your insurance card to the appointment to complete paperwork. Please also inform staff at this appointment that you are interested in individual therapy and psychiatric medication management so you can be added to their waitlist to obtain providers) Primary Care Physician: Dr. Hardy [Other] - 1 Week (You have been referred for a PCP. A follow-up appointment has not been obtained at the time of your discharge. Social work will follow-up and inform you of the follow-up appointment and encourage you to also call the clinic to obtain an appointment ) Discharge Medications: New prazosin 1 mg Capsule 1 mg PO BEDTIME 30 Days Qty: 30 2RF Protocol: Hold for SBP< HOLD for SBP < : 90 ziprasidone HCl 60 mg Capsule 60 mg PO BIDWM 30 Days Qty: 60 2RF Rx Instructions: Take one capsule with breakfast and one capsule with dinner Continued buprenorphine-naloxone 8-2 mg film 2 film sublingual DAILY 7 Days Qty: 14 0RF Discharge Orders: Discharge Order (Routine); Ordered 10/09/21 Ordered By: Villa Perea Diet: Regular diet Activity on Discharge: As tolerated Stand Alone Forms: Patient Portal Discharge page, Community Support Care Plan Goals: Maintain mood and safe behaviors Take medications as prescribed Continue to pursue sobriety Practice coping skills Continue with outpatient providers and reach out to them as needed Health Concerns: Mood stability and behaviors Sobriety Plan of Treatment: Follow up with your PCP, psychiatric provider and other outpatient providers regarding above concerns Take medications as prescribed Assessment: Risk assessment at time of discharge:? Patient was interviewed prior to discharge and found to be fully oriented and without any SI or HI. Patient has insight and demonstrates good judgment in terms of wanting to pursue treatment. Patient is not in imminent risk of harm to self or others and has a safety plan that includes presenting to the closest ER or calling 911 if feeling unsafe.? Patient has been observed closely by nursing and unit staff throughout admission; patient has not engaged in any behaviors that suggest dangerousness to self or others and has demonstrated appropriate behaviors and impulse control Discharge Date/Time: 10/09/21 10:35
[2021-10-08 18:00] VITALS: BP 126/82; PULSE 98; RESP 16; TEMP 36.6; O2SAT 99
[2021-10-08] MEDS: Prazosin HCL 1 MG CAPSULE PO (21:10)
[2021-10-09 06:00] VITALS: BP 127/75; PULSE 92; RESP 18; TEMP 36.6; O2SAT 98
[2021-10-09] MEDS: Buprenorphine/Naloxone 8/2 mg FILM 2 FILM SUBLINGUAL (08:35)
[2021-10-09] MEDS: LORazepam 1 MG TABLET PO (08:35)
[2021-10-09] MEDS: Ziprasidone 60 MG CAPSULE PO (08:35)
[2021-10-09] MEDS: Naloxone HCl Nasal TAKE HOME 4 MG SPRAY NOSTRILALT (09:27)
--- NOTE | 2021-10-09 10:53 | PC.NURSE ---
Patient was aware and ready for discharge. Paperwork reviewed with patient. Next dose medications and follow up appointment explained to patient. Patient verbalized understanding. Patient was accompanied with belongings to the front of the building per hospital policy.
== END 2021-10-09 10:35 | disposition home or self-care (01) | DRG 751 ==
LOC: HO.ED 09-29 09:58 → HO.PM5 09-29 14:51
PROVIDERS: Internal Medicine; Admitting Provider Psychiatry & Neurology Psychiatry; Emergency Provider Emergency Medicine Emergency Medical Services; Visit Provider Psychiatry & Neurology Psychiatry
DX: F29 Unspecified psychosis not due to a substance or known physiological condition (principal); F10.920 Alcohol use, unspecified with intoxication, uncomplicated; Y90.6 Blood alcohol level of 120-199 mg/100 ml; F11.20 Opioid dependence, uncomplicated; Z20.822 Contact with and (suspected) exposure to COVID-19; Z79.899 Other long term (current) drug therapy
CPT/HCPCS: 36415; 70450; 71045; 80053; 80061; 80143; 80179; 80307; 81003; 82077; 82550; 82947; 83036; 83605; 83690; 83880; 84484; 85025; 85610; 85730; 87635; 93005; 96360; 96361; 99285